=== PATIENT | female | born 1995 | race Caucasian/White ===

== ENCOUNTER → 2020-03-12 | Emergency (ER) | payer SELFPAY ==
[~2020-03-12] VITALS: Ht 170.2 cm; Wt 61.2 kg
[~2020-03-12] MED LIST: BACITRACIN TOP OINT 1 UD PKG TOP ONE; LIDOCAINE 1% HCL (LOCAL ANESTH.) INJ 20ML MDV ONE; LIDOCAINE 2%HCL (LOCAL ANESTH.) INJ 10ml MDV IJ ONE; TETANUS-DIPTH-ACEL PERTUSSIS 0.5ML SYR Tdap IM ONE
[2020-03-12 05:00] VITALS: BP 150/98
== END | disposition home or self-care (01) ==
LOC: ER 01:01
DX: S61.411A Laceration without foreign body of right hand, initial encounter (principal); Z88.0 Allergy status to penicillin; W25.XXXA Contact with sharp glass, initial encounter; Y93.89 Activity, other specified; Y92.89 Other specified places as the place of occurrence of the external cause; Y99.8 Other external cause status
CPT/HCPCS: 12002; 99283; J2001

== ENCOUNTER 2021-05-16 10:09 | Emergency (ER) | payer MEDICAID ==
[~2021-05-16] VITALS: Ht 170.2 cm; Wt 65.8 kg
[2021-05-16 10:50] LABS: Basophils # (auto) 0 10 ^3/uL (0-0.2); Basophils % (auto) 0.3 % (0.0-2.0); Eosinophils # (auto) 0 10 ^3/uL (0-0.8); Hematocrit 41.1 % (36.0-46.0); Hemoglobin 14.1 g/dL (12.2-16.2); Lymphocytes # (auto) 1.3 10 ^3/uL (0.4-5.4); Lymphocytes % (auto) 8.7 % (10.0-50.0); Mean Corpuscular Hemoglobin 31.4 pg (28.0-32.0); Mean Corpuscular Hgb Conc. 34.3 g/dL (32.0-36.0); Mean Corpuscular Volume 91.6 fL (80.0-100.0); Monocytes # (auto) 0.8 10 ^3/uL (0-1.3); Monocytes % (auto) 5.2 % (0.0-12.0); Neutrophils # (auto) 12.4 10 ^3/uL (1.6-8.6); Neutrophils % (auto) 85.8 % (37.0-80.0); Red Blood Cells 4.49 10^6/uL (4.0-5.20); Red Cell Distribution Width 13.7 % (11.8-14.3); White Blood Cell 14.5 10^3/uL (4.4-10.8)
[2021-05-16 11:10] LABS: Albumin 4.1 g/dL (3.4-5.0); Calcium 8.9 mg/dL (8.5-10.1); Potassium 3.1 mmol/L (3.5-5.1)
[2021-05-16 11:20] LABS: BUN/Creatinine Ratio 6.4; Bilirubin, Total 0.8 mg/dL (0.2-1.0)
[2021-05-16] MEDS ORDERED: ONDANSETRON ODT 4 MG TAB PO ONE (11:45)
[2021-05-16 11:59] LABS: Urine Bacteria MANY /hpf (None Seen); Urine Blood Negative /uL (Negative); Urine Mucus FEW (None Seen); Urine Specific Gravity 1.024 (1.001-1.035); Urine WBC 5 /hpf (0 - 5)
[2021-05-16 13:22] LABS: Amphetamine Screen, Urine NEGATIVE (NEGATIVE); Barbiturate Scree,Urine NEGATIVE (NEGATIVE); Benzodiazephine Screen, Urine NEGATIVE (NEGATIVE); Cannabinoid Screen, Urine POSITIVE (NEGATIVE); Cocaine Screen, Urine NEGATIVE (NEGATIVE); Opiate Scree,Urine NEGATIVE (NEGATIVE); Phencyclidine Screen, Urine NEGATIVE (NEGATIVE)
[2021-05-16 13:29] VITALS: BP 165/117
[2021-05-16] MEDS ORDERED: SODIUM CHLORIDE 0.9% 1,000 ML IV ONE (15:00)
== END 2021-05-16 16:42 | disposition home or self-care (01) ==
LOC: ER 10:09
DX: K29.70 Gastritis, unspecified, without bleeding (principal); N39.0 Urinary tract infection, site not specified; I10 Essential (primary) hypertension; F17.210 Nicotine dependence, cigarettes, uncomplicated; Z88.0 Allergy status to penicillin
CPT/HCPCS: 36415; 80053; 80307; 81001; 81025; 85025; 93005; 96360; 99284; J7030; Q0162

== ENCOUNTER 2022-12-18 17:03 | Emergency (ER) | payer MEDICAID ==
[~2022-12-18] VITALS: Ht 170.2 cm; Wt 66.0 kg
[2022-12-18] MEDS ORDERED: KETOROLAC TROMETH 60MG/2ML VIAL IM ONE (18:30)
[2022-12-18] MEDS ORDERED: NAP500T PO (18:34)
[2022-12-18 18:37] VITALS: BP 143/90
[2022-12-18] MEDS ORDERED: CEPH-510 PO (18:38)
== END 2022-12-18 19:45 | disposition home or self-care (01) ==
LOC: ER 17:03
DX: S93.402A Sprain of unspecified ligament of left ankle, initial encounter (principal); G89.29 Other chronic pain; M25.572 Pain in left ankle and joints of left foot; I10 Essential (primary) hypertension; F17.210 Nicotine dependence, cigarettes, uncomplicated; Z79.899 Other long term (current) drug therapy; Z88.0 Allergy status to penicillin; X58.XXXA Exposure to other specified factors, initial encounter; Y93.89 Activity, other specified; Y92.89 Other specified places as the place of occurrence of the external cause; Y99.8 Other external cause status
CPT/HCPCS: 73610; 96372; 99283; J1885